=== PATIENT | female | born 1985 | race Caucasian/White ===

== ENCOUNTER 2019-10-30 22:38 | Observation (INO) | payer OTHER ==
[~2019-10-30] VITALS: Ht 167.6 cm; Wt 90.3 kg
== END 2019-10-30 23:35 | disposition home or self-care (01) ==
LOC: SPU 22:38
PROVIDERS: ADMIT Obstetrics & Gynecology; ATTEND Obstetrics & Gynecology
DX: O42.913 Preterm premature rupture of membranes, unspecified as to length of time between rupture and onset of labor, third trimester (principal); Z3A.33 33 weeks gestation of pregnancy
CPT/HCPCS: 81002; G0378

== ENCOUNTER 2019-11-21 21:46 | Observation (INO) | payer OTHER | END 2019-11-22 01:08 | disposition home or self-care (01) | LOC: SPU 21:46 | PROVIDERS: ADMIT Obstetrics & Gynecology; ATTEND Obstetrics & Gynecology | DX: O62.9 Abnormality of forces of labor, unspecified (principal); Z3A.37 37 weeks gestation of pregnancy | CPT/HCPCS: 59025; 81002; G0378; 99218 ==

== ENCOUNTER 2019-11-23 13:52 | Inpatient (IN) | payer OTHER ==
[~2019-11-23] VITALS: Ht 167.6 cm; Wt 89.4 kg
[2019-11-23] MEDS ORDERED: LR 1,000 ML IV SCH (14:41)
[2019-11-23] MEDS ORDERED: OXYTOCIN/0.9 % SODIUM CHLORIDE 1,000 ML IV SCH (14:41)
[2019-11-23] MEDS ORDERED: TERBUTALINE SULFATE 1 MG/ML VIAL SUBCUT ONE (14:45)
[2019-11-23] MEDS ORDERED: NALBUPHINE HCL 10 MG/ML AMP IVP PRN (14:45)
[2019-11-23 15:25] LABS: BASOPHILS # (AUTO) 0.1 K/uL (0.0-0.2); BASOPHILS % (AUTO) 0.5 % (0.0-2.0); EOSINOPHILS # (AUTO) 0.1 K/uL (0.0-0.4); EOSINOPHILS % (AUTO) 0.7 % (0.0-4.0); HEMATOCRIT 43.1 % (36-48); HEMOGLOBIN 13.9 g/dL (12.0-16.0); LYMPHOCYTES # (AUTO) 2.7 K/uL (1.0-5.5); LYMPHOCYTES % (AUTO) 22.8 % (20.5-51.5); MEAN CORPUSCULAR HEMOGLOBIN 28 pg (27-31); MEAN CORPUSCULAR HGB CONC 32 % (32-36); MEAN CORPUSCULAR VOLUME 86 fL (79.0-98.0); MONOCYTES # (AUTO) 0.7 K/uL (0.0-1.0); MONOCYTES % (AUTO) 5.8 % (1.7-9.3); NEUTROPHILS # (AUTO) 8.4 K/uL (1.8-7.7); NEUTROPHILS % (AUTO) 70.2 % (40.0-70.0); PLATELET COUNT (AUTO) 208 K/uL (130-430); RED BLOOD CELL COUNT(AUTO) 5.01 MIL/uL (4.2-6.2); RED CELL DISTRIBUTION WIDTH 14.2 % (9.0-15.0); WHITE BLOOD COUNT (AUTO) 11.9 K/uL (4.8-10.8)
[2019-11-23 17:07] VITALS: BP_SYST 132
[2019-11-23] MEDS: MORPHINE SULFATE 10 MG/ML VIAL IVP PRN (21:00)
[2019-11-24] MEDS: MORPHINE SULFATE 10 MG/ML VIAL IVP PRN (01:00)
[2019-11-24] MEDS ORDERED: ROPIVACAINE HCL/PF 0.2% 200 ML ONE (09:23)
[2019-11-24] MEDS ORDERED: fentaNYL CITRATE/PF 100 MCG/2 ML AMP ONE (09:26)
[2019-11-24] MEDS ORDERED: LR 500 ML IV ONE (12:52)
[2019-11-24] MEDS ORDERED: FENT2mCg/mL-ROPIVA0.2%/NS EPID 200 ML EP SCH (13:00)
[2019-11-24] MEDS ORDERED: OXYTOCIN/0.9 % SODIUM CHLORIDE 1,000 ML IV ONE (13:43)
[2019-11-24] MEDS ORDERED: METHYLERGONOVINE MALEATE 0.2 MG TABLET PO PRN (13:45)
[2019-11-24] MEDS ORDERED: OXYCODONE/ACETAMINOPHEN 5-325 TABLET PO PRN (13:45)
[2019-11-24] MEDS ORDERED: DERMOPLAST SPRAY TP PRN (13:45)
[2019-11-24] MEDS ORDERED: DOCUSATE SODIUM 100 MG CAPSULE PO PRN (13:45)
[2019-11-24] MEDS ORDERED: SENNOSIDES/DOCUSATE SODIUM 1 TAB TABLET(SENOKOT-S) PO PRN (13:45)
[2019-11-24] MEDS ORDERED: HYDROCORTISONE 0.5%, 28.35 GM TOPICAL CREAM TP PRN (13:45)
[2019-11-24] MEDS ORDERED: WITCH HAZEL LEAF 1 MED.PAD MED.PAD TP PRN (13:45)
[2019-11-24] MEDS ORDERED: ANUSOL 1 EA SUPP.RECT (PREPARATION H) RC PRN (13:45)
[2019-11-24] MEDS ORDERED: LANOLIN 7 GM OINT. TP PRN (13:45)
[2019-11-24] MEDS ORDERED: TEMAZEPAM 15 MG CAPSULE PO PRN (21:00)
[2019-11-25] MEDS: IBUPROFEN 800 MG TABLET PO PRN ×3 (00:27→11:59)
[2019-11-25] MEDS: OXYCODONE/ACETAMINOPHEN 5-325 TABLET PO PRN ×2 (01:05→06:59)
[2019-11-25 07:01] LABS: HEMATOCRIT 42.4 % (36-48); HEMOGLOBIN 14.1 g/dL (12.0-16.0)
== END 2019-11-25 14:10 | disposition home or self-care (01) | DRG 807 ==
LOC: SPU 13:52
PROVIDERS: ADMIT Obstetrics & Gynecology; ATTEND Obstetrics & Gynecology
PROC: 10E0XZZ Delivery of Products of Conception, External Approach (ICD-10-PCS; principal; 2019-11-24)
DX: O80 Encounter for full-term uncomplicated delivery (principal); Z37.0 Single live birth; Z3A.37 37 weeks gestation of pregnancy; Z88.0 Allergy status to penicillin; Z91.040 Latex allergy status; Z88.5 Allergy status to narcotic agent
CPT/HCPCS: 36415; 81002-TC; 85018-TC; 85025; 86886; 86900; 86901; J2270; J2590; J3010; J7120